=== PATIENT | female | born 1990 | race Caucasian/White ===

== ENCOUNTER 2016-05-08 06:59 | Outpatient (CLI) | payer OTHER | END 2016-05-08 07:00 | disposition home or self-care (01) | DX: R10.2 Pelvic and perineal pain (principal) ==

== ENCOUNTER 2016-08-02 16:24 | Emergency (ER) | payer OTHER | END 2016-08-02 19:49 | disposition home or self-care (01) | DX: S06.2X0A Diffuse traumatic brain injury without loss of consciousness, initial encounter (principal); W01.0XXA Fall on same level from slipping, tripping and stumbling without subsequent striking against object, initial encounter; Y92.019 Unspecified place in single-family (private) house as the place of occurrence of the external cause ==